=== PATIENT | female | born 1970 | race African-American/Black ===

== ENCOUNTER 2017-05-16 15:14 | Emergency (ER) | payer BC ==
--- NOTE | 2017-05-16 15:20 | PDOC ---
Rapid Medical Evaluation Time Seen by Provider: 05/16/17 15:17 Medical Evaluation: Allergies Allergy/AdvReac Type Severity Reaction Status Date / Time No Known Allergies Allergy Verified 05/16/17 15:17 05/16/17 15:17 Pt arrives with complaints of: suprapubic pressure since monday, frequent urination, hx renal colic On exam : vss, no cva tenderness I have ordered: ua, upreg, ucx Pt will go to : fast track Discharge Disposition - Diagnosis Dysuria - Referrals Referrals: Agustin Clement MD [Primary Care Provider] - - Patient Instructions - Post Discharge Activity
[2017-05-16 15:21] VITALS: PULSE 85; TEMP 98; BMI 38.6
[2017-05-16 15:22] VITALS: BP 146/71
--- NOTE | 2017-05-16 15:52 | PDOC ---
History of Present Illness - General Chief Complaint: Pain Stated Complaint: PAIN Time Seen by Provider: 05/16/17 15:17 - History of Present Illness Initial Comments: 05/16/17 15:34 CHIEF COMPLAINT: suprapubic pain HISTORY OF PRESENT ILLNESS: 47 yo F with suprapubic "pressure" x 1 week, worse "right before I urinate." Patient reports a hx of kidney stones but states "this pressure is different." She denies any pain while urinating, just "pressure before." She denies any hematuria or urinary frequency. Patient reports that she her LMP was 04/17 and she thought "maybe this was just because it's time for my period again." She states she has not had any STD testing as she has been monogamous with her for 30 years. She denies an foul odor or any unusual discharge. PAST MEDICAL HISTORY: Denies past medical history FAMILY HISTORY: Denies SOCIAL HISTORY: Denies tobacco, alcohol, illicit drug use. SURGICAL HISTORY: "I had my tubes tied." ALLERGIES: No known drug allergies REVIEW OF SYSTEMS General/Constitutional: Denies fever or chills. Gastrointestinal: Denies nausea, vomiting, diarrhea. Denies rectal bleeding. Genitourinary: Suprapubic "pressure." Denies dysuria, frequency, or change in urination. Musculoskeletal: Denies joint or muscle swelling or pain. Denies neck or back pain. PHYSICAL EXAM General Appearance: Well-appearing, appropriately dressed. No apparent distress. HEENT: EOMI, PERRLA. No conjunctival pallor. No photophobia, scleral icterus. Respiratory/Chest: Lungs CTAB. Cardiovascular: RRR. S1, S2. Gastrointestinal/Abdominal: Left suprapubic tenderness. Normal bowel sounds. Abdomen soft, non-distended. No tenderness or rebound tenderness. No organomegaly, pulsatile mass, guarding, hernia, hepatomegaly, splenomegaly. Pelvic: External genitalia normal without lesions. Vaginal vault is clear without blood or discharge. Cervix is long and closed. No cervical motion tenderness. Uterus is nontender and normal in size. Adnexa are nontender and without masses. Musculoskeletal/Extremities: Normal inspection. FROM of all extremities, normal capillary refill. Pelvis Stable. No CVA tenderness. No tenderness to extremities, pedal edema, swelling, erythema or deformity. Integumentary: Appropriate color, dry, warm. No cyanosis, erythema, jaundice or rash Neurologic: event av operator II-XII intact. Fully oriented, alert. Appropriate mood/affect. Motor strength 5/5. No appreciable EOM palsy, facial droop or sensory deficit. Past History - Past Medical History Allergies/Adverse Reactions: Allergies Allergy/AdvReac Type Severity Reaction Status Date / Time No Known Allergies Allergy Verified 05/16/17 15:17 Home Medications: Ambulatory Orders Ibuprofen 800 mg PO TID #21 tablet 05/16/17 Unobtainable [Unobtainable] 05/16/17 COPD: No Kidney Stones: Yes - Suicide/Smoking/Psychosocial Hx Smoking History: Never smoked Information on smoking cessation initiated: No Hx Alcohol Use: No Drug/Substance Use Hx: No Substance Use Type: None *Physical Exam - Vital Signs Last Vital Signs Temp Pulse Resp BP Pulse Ox 98.0 F 85 18 146/71 100 05/16/17 15:18 05/16/17 15:18 05/16/17 15:18 05/16/17 15:18 05/16/17 15:18 Medical Decision Making - Medical Decision Making 05/16/17 16:11 47 yo F with suprapubic "pressure" x 1 week, worse "right before I urinate." -UA, UCx, Upreg Labs negative. Pelvic exam unremarkable. No CMT or adnexa tenderness. Advised patient to take Motrin for discomfort and to f/u with OBGYN. Advised patient of signs and symptoms for return to ER; patient verbalized understanding and agrees to plan. *DC/Admit/Observation/Transfer Diagnosis at time of Disposition: Suprapubic cramping - Discharge Dispostion Disposition: HOME Condition at time of disposition: Stable Admit: No - Prescriptions Prescriptions: Ibuprofen 800 mg PO TID #21 tablet - Referrals Referrals: Agustin Clement MD [Primary Care Provider] - - Patient Instructions Printed Discharge Instructions: DI for Dysmenorrhea Additional Instructions: Please take medication as prescribed. As discussed, if this pressure and discomfort continues past this menstrual cycle you MUST follow up with the OBGYN. You should make an appointment with you OBGYN as soon as possible regardless in order for a full gynecological exam. As discussed, if you develop any new or severe pain to one side, any vaginal bleeding or any new or worsening symptoms, please return to the ER immediately. - Post Discharge Activity
[2017-05-16 17:02] LABS: URINE APPEARANCE CLEAR; URINE BILIRUBIN NEGATIVE (NEGATIVE); URINE BLOOD NEGATIVE (NEGATIVE); URINE COLOR LTYELLOW; URINE GLUCOSE (UA) NEGATIVE (NEGATIVE); URINE KETONE NEGATIVE (NEGATIVE); URINE NITRITE NEGATIVE (NEGATIVE); URINE PROTEIN NEGATIVE (NEGATIVE); URINE UROBILINOGEN NEGATIVE mg/dL (0.2-1.0)
[2017-05-16 20:14] LABS: URINE LEUK ESTERASE Negative (NEGATIVE)
== END 2017-05-16 17:15 | disposition home or self-care (01) ==
LOC: JERFT 15:14
DX: R10.30 Lower abdominal pain, unspecified (principal); Z87.442 Personal history of urinary calculi
CPT/HCPCS: 36415; 81003; 84703; 87086; 87491; 87591; 99281-25

== ENCOUNTER 2022-04-01 11:09 | Day surgery (SDC) | payer BC ==
[2022-04-01] MEDS ORDERED: FERRIC CARBOXYMALTOSE 750 MG in SODIUM CHLORIDE 250 ML IVPB ONE (12:00)
[2022-04-01 14:28] VITALS: BP 133/66; PULSE 73; RESP 18; TEMP 98.8
== END 2022-04-01 13:15 | disposition home or self-care (01) ==
LOC: FINFUSION 11:09 → FM/S 11:10 → FINFUSION 13:15
PROVIDERS: ATTEND Family Medicine
PROC: 3E033GC Introduction of Other Therapeutic Substance into Peripheral Vein, Percutaneous Approach (ICD-10-PCS; principal; 2022-04-01)
DX: D50.9 Iron deficiency anemia, unspecified (principal)
CPT/HCPCS: 96365; J1439

== ENCOUNTER 2022-04-12 11:05 | Day surgery (SDC) | payer BC ==
[2022-04-12] MEDS ORDERED: FERRIC CARBOXYMALTOSE 750 MG in SODIUM CHLORIDE 250 ML IVPB ONE (11:30)
[2022-04-12 12:58] VITALS: BP 131/54; PULSE 73; RESP 18; TEMP 98.4
== END 2022-04-12 15:45 | disposition home or self-care (01) ==
LOC: FINFUSION 11:05 → FM/S 11:06 → FINFUSION 15:45
PROVIDERS: ATTEND Family Medicine
PROC: 3E033GC Introduction of Other Therapeutic Substance into Peripheral Vein, Percutaneous Approach (ICD-10-PCS; principal; 2022-04-12)
DX: D50.9 Iron deficiency anemia, unspecified (principal)
CPT/HCPCS: 96365; J1439

== ENCOUNTER 2022-09-12 12:16 | Emergency (ER) | payer BC ==
[2022-09-12 12:46] VITALS: BP 117/73; PULSE 92; RESP 20; TEMP 99; BMI 41.1
[2022-09-12] MEDS ORDERED: ACETAMINOPHEN 325 MG TABLET (FP) PO ONE (14:03)
[2022-09-12] MEDS ORDERED: ONDANSETRON *ODT* 4 MG TABLET SL ONE (14:03)
[2022-09-12] MEDS ORDERED: ONDANSETRON *ODT* 4 MG TABLET ONE (14:07)
[2022-09-12] MEDS ORDERED: ACETAMINOPHEN 325 MG TABLET (FP) ONE (14:07)
[2022-09-12] MEDS ORDERED: FAMOTIDINE 20 MG TABLET PO ONE (14:16)
[2022-09-12] MEDS ORDERED: MAG HYDROX/AL HYDROX/SIMETH 30 ML UNIT-DOSE CUP PO ONE (14:16)
[2022-09-12] MEDS ORDERED: MAG HYDROX/AL HYDROX/SIMETH 30 ML UNIT-DOSE CUP ONE (14:25)
[2022-09-12] MEDS ORDERED: FAMOTIDINE 20 MG TABLET ONE (14:25)
== END 2022-09-12 16:31 | disposition home or self-care (01) ==
LOC: JER 12:16
DX: R10.13 Epigastric pain (principal)
CPT/HCPCS: 99283-25; Q0162

== ENCOUNTER → 2022-11-14 | Emergency (ER) | payer BC ==
[2022-11-14 12:52] VITALS: BP 128/64; PULSE 89; RESP 18; TEMP 98.4; BMI 44.6
[2022-11-14 15:24] LABS: EPI CELLS 7 /uL (0-25.1); HYALINE CASTS 0 /uL (0-3.1); PH,URINE 6.5 (5.0-8.0); URINE APPEARANCE CLEAR; URINE BACTERIA 228 /uL (0-1359); URINE BILIRUBIN NEGATIVE (NEGATIVE); URINE COLOR ORANGE; URINE GLUCOSE (UA) NEGATIVE (NEGATIVE); URINE KETONE NEGATIVE (NEGATIVE); URINE LEUK ESTERASE TRACE (NEGATIVE); URINE NITRITE NEGATIVE (NEGATIVE); URINE PROTEIN TRACE (NEGATIVE); URINE RBC 4335 /uL (0-23.9); URINE UROBILINOGEN 0.2 mg/dL (0.2-1.0); URINE WBC 11 /uL (0-25.8)
== END | disposition home or self-care (01) ==
LOC: JER 12:42
DX: D25.9 Leiomyoma of uterus, unspecified (principal); N93.9 Abnormal uterine and vaginal bleeding, unspecified
CPT/HCPCS: 76830-TC; 81003; 87086; 99284-25

== ENCOUNTER 2022-11-25 16:28 | Emergency (ER) | payer BC ==
[2022-11-25 16:33] VITALS: BMI 44.6
[2022-11-25 17:32] LABS: BASO % 1.1 % (0-2.0); EOS % 2.5 % (0-4.5); HEMATOCRIT 24.1 % (32.4-45.2); HEMOGLOBIN 7.2 GM/dL (10.7-15.3); LYMPH % 25.3 % (8-40); MCH 18.2 pg (25.7-33.7); MCHC 29.9 g/dl (32.0-36.0); MEAN CELL VOLUME 60.8 fl (80-96); MEAN PLT VOLUME 8.6 fl (7.5-11.1); MONO % 7.2 % (3.8-10.2); NEUT % 63.9 % (42.8-82.8); PLATELET COUNT 317 10^3/uL (134-434); RBC 3.96 M/mm3 (3.60-5.2); RDW 20.7 % (11.6-15.6); WHITE BLOOD COUNT 9.1 K/mm3 (4.0-10.0)
[2022-11-25 17:47] LABS: POTASSIUM 4.4 mmol/L (3.5-5.1)
[2022-11-25 17:49] LABS: CALCIUM 9.3 mg/dL (8.5-10.1)
[2022-11-25 17:50] LABS: ALBUMIN 3.4 g/dl (3.4-5.0); BLOOD UREA NITROGEN 15.8 mg/dL (7-18)
[2022-11-25 17:53] LABS: CREATININE 0.8 mg/dL (0.55-1.3)
[2022-11-25 17:55] LABS: BILIRUBIN,TOTAL 0.2 mg/dL (0.2-1); TOT PROT 7.4 g/dl (6.4-8.2)
[2022-11-25 18:09] LABS: ANISOCYTOSIS 2+; MACROCYTOSIS 0; TARGET CELLS 1+
[2022-11-25 21:09] VITALS: RESP 16
[2022-11-25 23:53] LABS: BASO % 0.7 % (0-2.0); EOS % 2.3 % (0-4.5); LYMPH % 27.5 % (8-40); MCHC 30.9 g/dl (32.0-36.0); MEAN PLT VOLUME 8.3 fl (7.5-11.1); MONO % 10.8 % (3.8-10.2); NEUT % 58.7 % (42.8-82.8); PLATELET COUNT 279 10^3/uL (134-434); RBC 4.48 M/mm3 (3.60-5.2); RDW 24.3 % (11.6-15.6); WHITE BLOOD COUNT 8.8 K/mm3 (4.0-10.0)
[2022-11-25 23:54] LABS: MEAN CELL VOLUME 64.8 fl (80-96)
[2022-11-26 00:03] VITALS: BP 130/76; PULSE 77; TEMP 97.7
== END 2022-11-26 00:17 | disposition home or self-care (01) ==
LOC: JER 16:28
DX: D64.9 Anemia, unspecified (principal); D25.9 Leiomyoma of uterus, unspecified
CPT/HCPCS: 36415; 36430; 80053; 85025; 86850; 86900; 86901; 86922; 99285-25; P9058

== ENCOUNTER 2023-07-21 12:38 | Day surgery (SDC) | payer BC ==
[2023-07-21] MEDS ORDERED: IRON SUCROSE COMPLEX 200 MG in SODIUM CHLORIDE 100 ML IVPB ONE (13:30)
[2023-07-21 14:26] VITALS: BP 131/58; PULSE 90; RESP 19; TEMP 98.7
== END 2023-07-21 14:26 | disposition home or self-care (01) ==
LOC: FINFUSION 12:38 → FM/S 12:39 → FINFUSION 14:26
PROVIDERS: ATTEND Family Medicine
PROC: 3E033GC Introduction of Other Therapeutic Substance into Peripheral Vein, Percutaneous Approach (ICD-10-PCS; principal; 2023-07-21)
DX: D50.9 Iron deficiency anemia, unspecified (principal)
CPT/HCPCS: 96365

== ENCOUNTER 2023-07-28 12:52 | Day surgery (SDC) | payer BC ==
[2023-07-28] MEDS ORDERED: IRON SUCROSE INJECTION 200 MG in SODIUM CHLORIDE 100 ML IVPB ONE (13:30)
[2023-07-28 14:28] VITALS: BP 142/74; PULSE 68; RESP 18; TEMP 98.8
== END 2023-07-28 14:29 | disposition home or self-care (01) ==
LOC: FINFUSION 12:52 → FM/S 12:52 → FINFUSION 14:29
PROVIDERS: ATTEND Family Medicine
PROC: 3E033GC Introduction of Other Therapeutic Substance into Peripheral Vein, Percutaneous Approach (ICD-10-PCS; principal; 2023-07-28)
DX: D50.9 Iron deficiency anemia, unspecified (principal)
CPT/HCPCS: 96365; J1756